=== PATIENT | male | born 1960 | race Hispanic/Latino ===

== ENCOUNTER → 2019-08-12 | Outpatient (CLI) | payer OTHER | END | disposition home or self-care (01) | LOC: OIH 15:07 | PROVIDERS: ATTEND Internal Medicine Cardiovascular Disease | DX: Z13.6 Encounter for screening for cardiovascular disorders (principal) | CPT/HCPCS: 75571 ==

== ENCOUNTER → 2019-09-21 | Outpatient (CLI) | payer OTHER | END | disposition home or self-care (01) | LOC: SHCH 10:28 | PROVIDERS: ATTEND Internal Medicine Cardiovascular Disease | DX: I10 Essential (primary) hypertension (principal) | CPT/HCPCS: 93306; 93356 ==

== ENCOUNTER 2024-01-01 10:52 | Emergency (ER) | payer OTHER, MEDICARE ==
[~2024-01-01] VITALS: Ht 170.2 cm; Wt 92.5 kg
[2024-01-01] MEDS: KETOROLAC 30MG VIAL (30MG/ML) IVP ONE (11:30)
[2024-01-01] MEDS: 0.9%NACL 1000ML 1,000 ML IV ONE (11:30)
[2024-01-01 11:36] VITALS: BP 124/52; PULSE 81; RESP 18; O2SAT 97
[2024-01-01 11:37] LABS: BASOPHILS # (AUTO) 0.02 K/uL (0.00-0.20); BASOPHILS % (AUTO) 0.5 % (0.0-5.0); EOSINOPHILS # (AUTO) 0.22 K/uL (0.00-0.70); EOSINOPHILS % (AUTO) 5.8 % (0.0-8.0); HEMATOCRIT 42.8 % (42-54); IMMATURE GRANULOCYTE ABSOLUTE 0.02 K/uL (0-1); LYMPHOCYTES # (AUTO) 1.4 K/uL (1.0-4.8); LYMPHOCYTES % (AUTO) 36.9 % (21.0-51.0); MEAN CORPUSCULAR HEMOGLOBIN 31.8 pg (27.0-33.0); MEAN CORPUSCULAR HGB CONC 34.3 g/dL (32.0-36.0); MEAN CORPUSCULAR VOLUME 92.6 fL (79-99); MONOCYTES # (AUTO) 0.3 K/uL (0.1-1.0); MONOCYTES % (AUTO) 8.6 % (3.0-13.0); NEUTROPHILS # (AUTO) 1.8 K/uL (1.8-7.7); NEUTROPHILS % (AUTO) 47.7 % (40.0-77.0); PLATELET COUNT (AUTO) 234 K/uL (130-400); RED BLOOD CELL COUNT(AUTO) 4.62 MIL/uL (4.50-6.20); WHITE BLOOD COUNT (AUTO) 3.8 K/uL (4.8-10.8)
[2024-01-01 11:54] LABS: POTASSIUM 4.1 mmol/L (3.5-5.1)
[2024-01-01 11:59] LABS: ALBUMIN 3.9 g/dL (3.5-5.0); BILIRUBIN,TOTAL 0.7 mg/dL (0.2-1.0); TOTAL PROTEIN, SERUM 6.9 g/dL (6.0-8.3)
[2024-01-01] MEDS ORDERED: IBUP-2077 PO (13:32)
== END 2024-01-01 14:31 | disposition home or self-care (01) ==
LOC: EDH 10:52
DX: G89.29 Other chronic pain (principal); M54.50 Low back pain, unspecified; Z88.2 Allergy status to sulfonamides
CPT/HCPCS: 36415; 74176; 80053; 83690; 85025

== ENCOUNTER 2024-12-21 13:00 | Emergency (ER) | payer OTHER, MEDICARE ==
[~2024-12-21] VITALS: Ht 167.6 cm; Wt 97.1 kg
[~2024-12-21 13:00] MED LIST: IBUP-2077 PO
[2024-12-21 13:01] VITALS: TEMP 98
--- NOTE | 2024-12-21 13:09 | NUR ---
PT JUST NOW PLACED IN MY ED BED 10
[2024-12-21] MEDS ORDERED: LISI20TA24 PO (13:28)
[2024-12-21] MEDS ORDERED: DULO60CA64 PO (13:28)
[2024-12-21] MEDS ORDERED: THIA100T75 PO (13:28)
[2024-12-21] MEDS ORDERED: PYRI100L2 PO (13:28)
[2024-12-21] MEDS ORDERED: EMPA25TA PO (13:28)
[2024-12-21] MEDS ORDERED: ATOR40TA69 PO (13:28)
--- NOTE | 2024-12-21 13:38 | NUR ---
MEDICATION RECONCILIATION COMPLETE
--- NOTE | 2024-12-21 14:35 | ERN ---
General Chief Complaint: Hypertension Stated Complaint: ELEVATED BP Time Seen by MD: 13:06 Source: patient History of Present Illness Initial Comments Patient is a 63 y/o male here for evaluation of elevated blood pressure. Patient states he has recently changed his amlodipine to lisinopril. He states he has take his lisinopril twice but feels that it might not be working. Patient has a hx of dm and htn. 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/24 Reported Medications Pyridoxine HCl (Vitamin B6) (Vitamin B6) 100 Mg/2.5 Ml Liquid, 100 MG PO DAILY 12/21/24 Thiamine Mononitrate (Vitamin B-1) 100 Mg Tablet, 1 TAB PO DAILY for 30 Days, #30 TAB 0 Refills 12/21/24 Atorvastatin Calcium (LIPITOR) 40 Mg Tablet, 1 TAB PO HS for 30 Days, #30 TAB 0 Refills 12/21/24 Empagliflozin (Jardiance) 25 Mg Tablet, 1 TAB PO DAILY for 30 Days, #30 TAB 0 Refills 12/21/24 Duloxetine HCl (Duloxetine HCl) 60 Mg Capsule.dr, 1 CAP PO DAILY for 30 Days, #30 CAP 0 Refills 12/21/24 Lisinopril (Lisinopril) 20 Mg Tablet, 1 TAB PO DAILY for 30 Days, #30 TAB 0 Refills 12/21/24 Past Medical History Past Medical History: Anxiety, Depression, Diabetes-Type II, Hypertension, Migraines Medical History Other: BACK PAIN Past Surgical History: Tonsillectomy, Other Surgical History Other: R FOOT ROS Dictation CONSTITUTIONAL: No chills, no fever, no weakness, no diaphoresis, no malaise. HEAD/FACE: No signs of trauma. EENT: No eye pain, no blurred vision, no tearing, no double vision, no ear pain, no ear discharge, no nose pain, no nasal congestion, no throat pain, no throat swelling, no mouth pain. RESPIRATORY: No cough, no orthopnea, no SOB, no stridor, no wheezing. CARDIOVASCULAR: No chest pain, no edema, no palpitations, no syncope. GASTROINTESTINAL/ABDOMINAL: No abdominal pain, no constipation, no diarrhea, no nausea, no vomiting. GENITOURINARY: No abnormal discharge, no dysuria, no frequent urination, no hematuria. No complaints of pain in the genitals. MUSCULOSKELETAL: No back pain, no gout, no joint pain, no joint swelling, no muscle pain, no muscle stiffness, no neck pain. INTEGUMENTARY: No change in color, no change in hair/nails, no dryness, no lesion, no lumps, no rash. NEUROLOGICAL/PSYCH: No anxiety, not depressed, no emotional problem, no headache, no numbness, no pre-existing deficit, no history of seizures, no tremors, no weakness. HEMATOLOGIC/LYMPHATIC: Not anemic, no history of blood clots, no apparent bleeding, no bruising, glands not swollen. All Systems Negative, Except as Noted. Physical Exam Physical Exam Dictation VITAL SIGNS: Reviewed. GENERAL APPEARANCE: Alert, oriented x3, no acute distress, obese. HEAD AND FACE: Non-traumatic. EYES: PERRL, pink conjunctivas, eyelid no trauma, anterior chamber clear. EARS: Pinnas intact and no signs of trauma or erythema. Ear canals clear and no discharge. TMs no erythema. NOSE: No discharge, no bleeding. OROPHARYNX: Mouth normal, teeth no caries, tongue pink. Pharynx clear, no erythema. Tonsils no exudates, no abscesses noted. Mucous membrane moist. NECK: Supple, non-tender, no thyromegaly, no masses, no JVD, no bruits. BREAST: Deferred. CHEST: No tenderness, no crepitus, no paradoxical movement, no retractions. LUNGS: Clear, well-ventilated, symmetric, no rales, no wheezing, no rhonchi, no stridor, good breath sounds bilaterally. HEART: Regular rate, regular rhythm, no murmur, no gallops. VASCULAR: No peripheral edema. ABDOMEN: Soft, positive bowel sounds, nondistended, no guarding, nontender, no rebound, no masses no hepatomegaly, no splenomegaly, no Cui's sign, no hernias. RECTAL: Deferred. GENITAL: Deferred. NEUROLOGICAL: Normal speech, gross motor function intact, gross sensory function intact. MUSCULOSKELETAL: Neck nontender, full range of motion, back nontender, full range of motion. EXTREMITIES: Nontender, full range of motion. SKIN: Color pink, dry, no turgor, no rash, no lacerations, no abrasions, no contusions. LYMPHATICS: Deferred. Results Laboratory and Microbiology Labs Reviewed?: Yes EKG/XRAY/US/CT/MRI EKG Comment 12/21/2024 time13:41 vent rate [address] wave elevation pr 150 MDM MDM: Differential diagnosis:htn, anxiety reaction, Rationale: Tests considered and ordered secondary to shared decision making include: labs, ECG and radiology Previous outside records reviewed: Old ER visits. Patient is a 63 y/o male her for evaluation of htn. Patient states he has been under allot of stress and believes this is playing a role in his elevated b/p. Patient refused laratory work up and states he feels better. ED Course Orders Procedure Category Date Status Time Cbc With Differential LAB 12/21/24 Logged 13:24 Prothrombin Time With LAB 12/21/24 Logged INR 13:24 B-Type Natriuretic LAB 12/21/24 Logged Peptide 13:24 Chest 1vw RAD 12/21/24 Resulted 13:24 12 Lead Ekg Tracing- EKG 12/21/24 Complete Technical 13:24 Magnesium LAB 12/21/24 Logged 13:24 Urinalysis Profile LAB 12/21/24 Logged 13:24 Partial LAB 12/21/24 Logged Thromboplastin Time 13:24 Basic Metabolic Panel LAB 12/21/24 Logged 13:24 Cardiac Panel LAB 12/21/24 Logged 13:24 Vital Signs Date Time Temp Pulse Resp B/P (MAP) Pulse Ox O2 Delivery O2 Flow Rate FiO2 12/21/24 13:31 89 16 189/100 100 Room Air* 0 21 12/21/24 13:01 98.1 86 16 201/104 100 Room Air 0 DX & DISP Disposition: Discharge Departure Impression: Primary Impression: HTN (hypertension) Additional Impression: Stress Condition: Stable Additional Instructions: FOLLOW-UP WITH PRIMARY CARE PROVIDER IN 1 TO 2 DAYS. TAKE MEDICATIONS DIRECTED HERE IN THE EMERGENCY ROOM. OKAY TO CONTINUE HOME MEDICATIONS UNLESS OTHERWISE DISCUSSED DURING YOUR VISIT IN THE EMERGENCY ROOM TODAY. RETURN TO YOUR NEAREST EMERGENCY ROOM IF SYMPTOMS WORSEN OR IF THERE IS NO IMPROVEMENT. CALL 911 IF YOU NEED IMMEDIATE ASSISTANCE. TAKE TYLENOL [id number] NEEDED AND IF NO CONTRAINDICATIONS ARE PRESENT. INCREASE ORAL HYDRATION. A WOUND CULTURE OR URINE CULTURE WAS ORDERED HERE IN THE EMERGENCY ROOM DEPARTMENT PLEASE FOLLOW-UP WITH PRIMARY CARE PROVIDER AND ADVISE THEM TO GET REPEAT PORTS FROM OUR FACILITY. IF YOU HAD ANY PAULA WRAP/SPLINTS THAT WERE APPLIED HERE, PLEASE DO NOT REMOVE THEM UNTIL YOU SEE YOUR PRIMARY CARE OR SPECIALTY. Referrals: Referrals: PRASANTH MINA (PCP) Time of Disposition: 15:49 SALINA TOMPKINS MD December 21, 2024 14:35
--- NOTE | 2024-12-21 14:54 | EKG ---
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
--- NOTE | 2024-12-21 15:35 | HMCIMG ---
Exam Type: CHEST 1VW Clinical Information: cp Comparison: None Findings: The lungs are clear of infiltrates. The heart is enlarged. Bony and soft tissue structures of the chest wall are unremarkable. IMPRESSION: Cardiomegaly. Clear lungs.
[2024-12-21 15:49] VITALS: BP 172/92; PULSE 78; RESP 18; O2SAT 97
[2024-12-21 16:02] LABS: APPEARANCE,URINE CLEAR (CLEAR); BILIRUBIN,URINE NEGATIVE (NEGATIVE); COLOR,URINE COLORLESS (YELLOW); GLUCOSE, URINE (UA) >=1000 mg/dL (NEGATIVE); KETONES,URINE 10 mg/dL (NEGATIVE); LEUKOCYTE ESTERASE ,URINE NEGATIVE Leu/uL (NEGATIVE); NITRATE,URINE NEGATIVE (NEGATIVE); OCCULT BLOOD,URINE NEGATIVE (NEGATIVE); PROTEIN,URINE NEGATIVE (NEGATIVE); UROBILINOGEN,URINE 0.2 mg/dL (0.2-1.0)
[2024-12-21 16:18] LABS: ADD UA MICROSCOPIC YES
[2024-12-21 16:19] LABS: BACTERIA,URINE RARE /HPF (None Seen); SQUAMOUS EPITHELIAL CELL,UR RARE /HPF (0-2); UNCLASSIFIED CRYSTAL 1 /HPF (None Seen)
== END 2024-12-21 16:06 | disposition home or self-care (01) ==
LOC: EDH 13:00
DX: I10 Essential (primary) hypertension (principal); E11.9 Type 2 diabetes mellitus without complications; G43.909 Migraine, unspecified, not intractable, without status migrainosus; Z79.84 Long term (current) use of oral hypoglycemic drugs; Z79.899 Other long term (current) drug therapy; Z88.2 Allergy status to sulfonamides; Z90.89 Acquired absence of other organs
CPT/HCPCS: 71045; 81001; 93005; 99285